=== PATIENT | male | born 1975 | race Caucasian/White ===

== ENCOUNTER → 2016-04-04 | Outpatient (CLI) | payer BC ==
[~2016-04-04] MED LIST: AZIT250T81 PO
[2016-04-04 11:21] VITALS: BP 129/82
--- NOTE | 2016-04-04 11:21 | Urgent Care T Sheet Gen (E) ---
Intake General Temperature (Fahrenheit): 98.2 Pulse: 64 Blood Pressure Systolic: 129 Blood Pressure Diastolic: 82 Respirations: 18 SPO2: 97 Description of Symptoms Patient presents with cold like symptoms for several weeks. States the symptoms worsened a few days ago. Notes sinus congestion, ear fullness and fever. No cough. Been taking Mucinex which helps but only temporarily. History of Present Illness Home Meds Active Scripts Azithromycin (Zithromax Z-Chad)6 Tab/Pkt [id number] Mg PO SEE INSTRUCTIONS #6 TAB Ref 0 Day One: Take 2 tablets by mouth Days Two-Five: Take 1 tablet by mouth Prov:KARY MALAGON 04/04/16 Respiratory Constitutional Symptoms: Fever Malaise EENTM: Nose Congestion Throat pain Respiratory: No symptoms reported Cardiovascular: No symptoms reported Neurological: Headache All Other Systems Reviewed Remaining Systems: All other systems reviewed with negative findings Physical Exam Physical Exam General Appearance: WD/WN No apparent distress Eyes, Ears, Nose, Throat Ex: TMs normal (air fluid bubbles) Pharyngeal erythema (PND; cobblestone appearance) Other (red, swollen nasal turbinates with purulent drainage) Neck Exam: SuppleNo Lymphadenopathy Respiratory Exam: Lungs clear Normal breath sounds Cardiovascular Exam: Regular rate, rhythm Departure Urgent Care Impression Impression: Primary Impression: Sinusitis Qualified Code: J01.10 - Acute frontal sinusitis, unspecified Departure Disposition: 01 HOME OR SELF-CARE Condition: Stable Referrals: TRUNG MONTALVO MD (PCP) Additional Instructions: I have started the patient on a Z-Pack for treatment. Offered Prednisone for a few days due to his severe nasal swelling, however he declined. Suggested he continue with Mucinex Rest. Fluids Return as needed Patient understands DC instructions. All questions were answered. Scripts Azithromycin (Zithromax Z-Chad)6 Tab/Pkt [id number] Mg PO SEE INSTRUCTIONS #6 TAB Ref 0 Day One: Take 2 tablets by mouth Days Two-Five: Take 1 tablet by mouth Prov:KARY MALAGON 04/04/16 End of report . KARY MALAGON Apr 04, 2016 10:49
== END ==
LOC: MHUC 10:24
PROVIDERS: ATTEND Physician Assistant
DX: J01.00 Acute maxillary sinusitis, unspecified (principal)
CPT/HCPCS: 99213